=== PATIENT | male | born 1965 | race African-American/Black ===

== ENCOUNTER 2016-11-04 20:59 | Emergency (ER) | payer MEDICAID ==
[~2016-11-04] VITALS: Ht 175.3 cm; Wt 81.0 kg
[2016-11-04] MEDS ORDERED: IBUPROFEN 600MG TABLET PO ONE (22:30)
[2016-11-04] MEDS ORDERED: LIDOCAINE HCL 1%/EPI 1:200,000 30 ML VIAL MC ONE (22:30)
[2016-11-04] MEDS ORDERED: TETANUS, DIPHTHERIA, PERTUSSIS VAC/PF 0.5ML (>7YR OLD) IM ONE (22:30)
[2016-11-04] MEDS ORDERED: BACITRACIN ZINC OINT UDPKT TOP ONE (22:30)
[2016-11-05 00:22] LABS: *AMPHETAMINES SCREEN URINE NEGATIVE (NEGATIVE); *BARBITURATES SCREEN URINE NEGATIVE (NEGATIVE); *BENZODIAZEPINES SCREEN URINE NEGATIVE (NEGATIVE); *COCAINE SCREEN URINE NEGATIVE (NEGATIVE); CANNABINOID URINE SCREEN PRESUMTIVE POSITIVE (NEGATIVE); METHADONE URINE SCREEN NEGATIVE (NEGATIVE); OPIATES URINE SCREEN NEGATIVE (NEGATIVE); PHENCYCLIDINE URINE SCREEN NEGATIVE (NEGATIVE)
[2016-11-05 00:39] VITALS: BP 136/78
[2016-11-05 00:43] LABS: HEMATOCRIT. 37.2 % (42.0-52.0); HEMOGLOBIN. 12.3 g/dL (14.0-18.0); MEAN CORPUSCULAR HEMOGLOBIN 28.8 pg (28.0-32.0); MEAN CORPUSCULAR VOLUME 86.8 fL (80.0-94.0); MEAN PLATELET VOLUME 7.6 fl (7.4-10.4); PLATELET 211 x1000/uL (130-400); RED BLOOD CELL COUNT 4.29 mill/uL (4.7-6.1); RED CELL DISTRIBUTION WIDTH 13.8 % (11.6-14.6)
[2016-11-05 00:54] LABS: ETHANOL BLOOD 182 mg/dL
[2016-11-05 00:58] LABS: CARBON DIOXIDE 25 mEq/L (21-32); CHLORIDE 109 mEq/L (98-107)
[2016-11-05 02:06] LABS: PLATELET ESTIMATE NORMAL
[2016-11-05 07:54] LABS: HEPATITIS A AB IGM NEGATIVE (NEGATIVE); HEPATITIS B CORE AB IGM NEGATIVE; HEPATITIS B SURFACE AB 3.5 mIU/mL; HEPATITIS B SURFACE ANTIGEN NEGATIVE; HEPATITIS C VIR.AB 0.04 INDEXVAL (0.00-0.80); HEPATITIS C VIR.AB 0.05 INDEXVAL (0.00-0.80)
[2016-11-07 13:07] LABS: HEPATITIS B CORE ANTIBODY Negative (Negative)
== END 2016-11-05 01:43 | disposition home or self-care (01) ==
LOC: ER 21:29
DX: S01.412A Laceration without foreign body of left cheek and temporomandibular area, initial encounter (principal); S00.03XA Contusion of scalp, initial encounter; F17.200 Nicotine dependence, unspecified, uncomplicated; W19.XXXA Unspecified fall, initial encounter; Y93.9 Activity, unspecified; Y92.89 Other specified places as the place of occurrence of the external cause; Y99.8 Other external cause status
CPT/HCPCS: 12011; 36415; 70150; 70450; 80053; 80305; 85025; 86592; 87186; 90471; 90715; 93005; 99285; G0482; X7700; Z7610; 86705; 86709; 86803; 87340